=== PATIENT | male | born 1985 | race Two or more races ===

== ENCOUNTER 2021-09-07 03:49 | Emergency (ER) | payer OTHER ==
[~2021-09-07] VITALS: Ht 167.6 cm; Wt 81.6 kg
[2021-09-07 03:49] VITALS: BP 127/91
== END 2021-09-07 09:01 | disposition home or self-care (01) ==
LOC: ER 03:49
DX: S16.1XXA Strain of muscle, fascia and tendon at neck level, initial encounter (principal); S46.911A Strain of unspecified muscle, fascia and tendon at shoulder and upper arm level, right arm, initial encounter; M10.9 Gout, unspecified; V49.9XXA Car occupant (driver) (passenger) injured in unspecified traffic accident, initial encounter; Y93.89 Activity, other specified; Y92.410 Unspecified street and highway as the place of occurrence of the external cause; Y99.8 Other external cause status
CPT/HCPCS: 71045; 72125; 73030